=== PATIENT | female | born 1950 | race Caucasian/White ===

== ENCOUNTER 2017-05-06 07:16 | Day surgery (SDC) ==
[2017-05-06] MEDS: TETRACAINE 0.5% UNIT-DOSE OP PRN ×2 (08:05→08:41)
[2017-05-06] MEDS: BETADINE OPTH PREP OP PRN ×2 (08:06→08:42)
[2017-05-06] MEDS: CYCLOGYL 2% OPTH OP PRN ×3 (08:07→08:17)
[2017-05-06 08:14] VITALS: TEMP 98.7
[2017-05-06] MEDS ORDERED: ZOFRAN 4 MG/2 ML IVP ONE (08:18)
[2017-05-06] MEDS ORDERED: OMIDRIA 1-0.3% IN BSS BAG IR ONE (08:18)
[2017-05-06] MEDS ORDERED: MOXIFLOXACIN 150 MCG/0.1 ML-BSS INJ (SURGERY) IO ONE (08:18)
[2017-05-06] MEDS ORDERED: AK-DILATE 10% OPTH SOL OP PRN (08:18)
[2017-05-06] MEDS ORDERED: BRIMONIDINE TARTRATE 0.2% OPTH SOL OP PRN (08:18)
[2017-05-06] MEDS ORDERED: LIDOCAINE 1%/PHENYLEPHRINE 1.5% BSS (SURGERY) INTRAOCULA ONE (08:18)
[2017-05-06] MEDS ORDERED: LIDOCAINE 1% 20 ML MDV INJ STA (08:18)
[2017-05-06] MEDS ORDERED: NIRAVAM ODT (SURGERY) PO PRN (08:18)
[2017-05-06] MEDS ORDERED: PRED FORTE 1% OPTH SOL OP ONE (08:18)
[2017-05-06] MEDS ORDERED: VERSED ONE (08:50)
[2017-05-06] MEDS ORDERED: TORADOL ONE (08:50)
[2017-05-06] MEDS ORDERED: SUBLIMAZE ONE (08:50)
[2017-05-06] MEDS ORDERED: DIPRIVAN 20 ML VIAL IVP ONE (08:50)
[2017-05-06 09:34] VITALS: BP 118/64
== END 2017-05-06 09:40 | disposition home or self-care (01) ==
LOC: SURG 07:16
PROVIDERS: ATTEND Ophthalmology
DX: H25.812 Combined forms of age-related cataract, left eye (principal)

== ENCOUNTER 2017-05-20 07:03 | Day surgery (SDC) ==
[2017-05-20 07:39] VITALS: TEMP 98.6
[2017-05-20] MEDS ORDERED: ZOFRAN 4 MG/2 ML IVP ONE (07:39)
[2017-05-20] MEDS ORDERED: AK-DILATE 10% OPTH SOL OP PRN (07:39)
[2017-05-20] MEDS ORDERED: NIRAVAM ODT (SURGERY) PO PRN (07:39)
[2017-05-20] MEDS ORDERED: BRIMONIDINE TARTRATE 0.2% OPTH SOL OP PRN (07:39)
[2017-05-20] MEDS ORDERED: OMIDRIA 1-0.3% IN BSS BAG IR ONE (07:39)
[2017-05-20] MEDS ORDERED: MOXIFLOXACIN 150 MCG/0.1 ML-BSS INJ (SURGERY) IO ONE (07:39)
[2017-05-20] MEDS ORDERED: PRED FORTE 1% OPTH SOL OP ONE (07:39)
[2017-05-20] MEDS: TETRACAINE 0.5% UNIT-DOSE OP PRN ×4 (07:40→08:11)
[2017-05-20] MEDS: CYCLOGYL 2% OPTH OP PRN ×4 (07:40→07:52)
[2017-05-20] MEDS: BETADINE OPTH PREP OP PRN ×3 (07:40→08:12)
[2017-05-20] MEDS: LIDOCAINE 1%/PHENYLEPHRINE 1.5% BSS (SURGERY) INTRAOCULA ONE ×2 (07:45→08:29)
[2017-05-20] MEDS ORDERED: TORADOL ONE (08:20)
[2017-05-20] MEDS ORDERED: DIPRIVAN 20 ML VIAL IVP ONE (08:20)
[2017-05-20 09:06] VITALS: BP 120/71
[2017-05-20] MEDS ORDERED: LIDOCAINE 1% 20 ML MDV ID STA (13:22)
== END 2017-05-20 09:20 | disposition home or self-care (01) ==
LOC: SURG 07:03
PROVIDERS: ATTEND Ophthalmology
DX: H25.811 Combined forms of age-related cataract, right eye (principal)